=== PATIENT | male | born 1990 | race African-American/Black ===

== ENCOUNTER 2019-04-24 09:47 | Emergency (ER) | payer BC, OTHER ==
[2019-04-24 09:56] VITALS: BP 104/71; PULSE 98; TEMP 98.6; BMI 29.9
--- NOTE | 2019-04-24 10:44 | PDOC ---
History of Present Illness - General Chief Complaint: Rash Stated Complaint: ALLERGIC REACTION Time Seen by Provider: 04/24/19 10:10 History Source: Patient - History of Present Illness Timing/Duration: reports: other Location: reports: generalized Past History - Past Medical History Allergies/Adverse Reactions: Allergies Allergy/AdvReac Type Severity Reaction Status Date / Time iodine Allergy Verified 05/15/15 13:42 Home Medications: Ambulatory Orders NK [No Known Home Medication] 04/24/19 Asthma: Yes COPD: No - Immunization History Immunization Up to Date: No - Psycho Social/Smoking Cessation Hx Smoking History: Never smoked Have you smoked in the past 12 months: No Number of Cigarettes Smoked Daily: 3 Information on smoking cessation initiated: No 'Breaking Loose' booklet given: 02/15/15 Hx Alcohol Use: No Drug/Substance Use Hx: No Substance Use Type: None Review of Systems - Review of Systems Integumentary: Yes: Pruritus, Rash *Physical Exam - Vital Signs Last Vital Signs Temp Pulse Resp BP Pulse Ox 98.6 F 98 H 18 104/71 100 04/24/19 09:53 04/24/19 09:53 04/24/19 09:53 04/24/19 09:53 04/24/19 09:53 - Physical Exam General Appearance: Yes: Appropriately Dressed. No: Apparent Distress HEENT: positive: Normal Voice Neck: positive: Supple Integumentary: positive: Dry, Warm. negative: Rash Neurologic: positive: Fully Oriented, Alert, Normal Mood/Affect Medical Decision Making - Medical Decision Making 04/24/19 10:38 28-year-old male, no significant history, here for evaluation for hives. Patient states in the past couple months he has broken out with hives all over his body twice. No rash present currently. States he wants to know why he keeps getting hives. Only allergy is to seafood which he does not eat. Patient well-appearing and stable with no rash on exam. Will dc with allergy follow-up Discharge - Discharge Information Problems reviewed: Yes Clinical Impression/Diagnosis: Rash and nonspecific skin eruption Condition: Good Disposition: HOME - Follow up/Referral Referrals: Jonny Sinha MD, MD [Primary Care Provider] - Rebeca Beyer MD [Staff Physician] - - Patient Discharge Instructions Patient Printed Discharge Instructions: DI for Hives Additional Instructions: The cause of your recurrent hives is unclear at this time but you were referred to an machine packer for further evaluation - Post Discharge Activity
== END 2019-04-24 10:49 | disposition home or self-care (01) ==
LOC: JERFT 09:47
DX: L50.9 Urticaria, unspecified (principal); Z91.013 Allergy to seafood; Z88.8 Allergy status to other drugs, medicaments and biological substances
CPT/HCPCS: 99281-25

== ENCOUNTER 2024-02-03 10:07 | Emergency (ER) | payer BC, OTHER ==
[2024-02-03 10:19] VITALS: BP 106/75; PULSE 96; RESP 20; TEMP 98.5; BMI 31.4
[2024-02-03] MEDS ORDERED: ALBUTEROL SO4 2.5/IPRATROPIUM 0.5 INH SOL 3 ML VIAL.NEB. NEB ONE (10:35)
[2024-02-03] MEDS ORDERED: predniSONE 20 MG TABLET (UD) ONE (10:47)
[2024-02-03] MEDS: predniSONE 20 MG TABLET (UD) PO ONE (10:50)
[2024-02-03] MEDS: ALBUTEROL SO4 2.5/IPRATROPIUM 0.5 INH SOL 3 ML VIAL.NEB. NEB ONE (10:50)
[2024-02-03 12:42] LABS: HIV INTERPRETATION NEGATIVE (NEGATIVE)
== END 2024-02-03 11:54 | disposition home or self-care (01) ==
LOC: JERFT 10:07
PROC: 3E0F7GC Introduction of Other Therapeutic Substance into Respiratory Tract, Via Natural or Artificial Opening (ICD-10-PCS; principal; 2024-02-03)
DX: R06.2 Wheezing (principal); R06.02 Shortness of breath; J45.901 Unspecified asthma with (acute) exacerbation
CPT/HCPCS: 36415; 86803; 87389; 99283-25